=== PATIENT | female | born 1950 | race Caucasian/White ===

== ENCOUNTER → 2017-06-30 | Outpatient (CLI) | payer BC, OTHER ==
[~2017-06-30] MED LIST: NS 1000 ML 1,000 ML ONE
[2017-06-30 08:42] LABS: CREATININE 0.89 mg/dL (0.55-1.02)
--- NOTE | 2017-06-30 15:01 | CT ---
CT CHEST WITH IV CONTRAST HISTORY: Shortness of breath. History of PE. Comparison: None Technique: Non gated axial images of the chest were obtained with intravenous contrast according [facility] protocol. Dose reduction techniques including Automated Exposure Control (AEC) and ad justment of mA and kV were utlized. Findings: Although not optimized to detect pulmonary embolism, no evidence of a pulmonary embolism to the level of the segmental pulmonary arteries. The heart is normal in size. No pericardial effusion. Three-vessel coronary artery calcification. No suspicious mediastinal or axillary lymph nodes. No focal consolidations, pleural effusions or pneumothorax. Airways are patent. No suspicious pulmona ry nodules or masses. Limited images of the upper abdomen are unremarkable. No aggressive osseous lesions. IMPRESSION: 1. No source of patient's shortness of breath is identified on this examination. Reported By:
== END ==
LOC: RAD 08:06 → EDSEX 08:06
PROVIDERS: ATTEND Internal Medicine
DX: R60.1 Generalized edema (principal); Z86.711 Personal history of pulmonary embolism; R06.02 Shortness of breath
CPT/HCPCS: 36415; 71260; 82565; 84520; A4222

== ENCOUNTER 2018-11-12 02:32 | Inpatient (IN) ==
[2018-11-12] MEDS ORDERED: TORADOL 60 MG VIAL IM ONE (03:52)
[2018-11-12] MEDS ORDERED: TORADOL 60 MG VIAL ONE (03:56)
--- NOTE | 2018-11-12 04:01 | DR.GENAD ---
HPI Time Seen Time Seen by Provider: 11/12/18 03:37 PCP Primary Care Physician: DEENA Complaint/Symptoms Chief Complaint Doctors Comments: Patient presents with complaint of headache, not relieved by Naprosyn 275mg tonight. She denies vomiting admits to diarrhea x4 today. She admits to a history of hyponatremia (idiopathic) Chief Complaint:: STATES "HANDS AND FEET ARE COLD" BLOOD PRESSURE ELEVATED AT HOME, LAST BLOOD PRESSURE CHECKED 184/72. STATES SHE TOOK NIGHT TIME BLOOD PRESSURE MEDS AND REGULAR MEDS AND ALSO HAS A BAD HEADACHE. Source History Provided: Patient Mode of Arrival Mode of Arrival: Ambulatory Timing Onset of Chief Complaint: 11/11/18 PMH PMH Past Medical History: Yes Past Medical History: Hypertension Past Medical History Comment: "LOW SODIUM" Past Surgical History: Yes Surgical History: Hysterectomy, Ortho Surgery and Tonsillectomy Past Surgical History Comment: RIGHT KNEE REPLACEMENT Family History History of Family Medical Conditions: Yes Family Medical History: [place] Social History Does patient currently use any type of tobacco product: No Have you used tobacco products in the last 12 months: No Type of Tobacco Use: None Does any household member use tobacco: No Alcohol Use: None Do you use any recreational Drugs:: No Lives With: Spouse Lives Where: Home infectious screening In the last 2 months have you had wt loss of >10#?: NO Have you had fever, night sweats or hemotysis?: No Have you traveled outside the country in the last 6 months?: No Isolation: Standard ROS Review of Systems Constitutional: No Symptoms Reported; negative Weakness Eyes: No Symptoms Reported ENTM: No Symptoms Reported Respiratoy: No Symptoms Reported Gastrointestinal/Abdominal: See HPI and Diarrhea Genitourinary: No Symptoms Reported Neurological: Headache Musculoskeletal: No Symptoms Reported Integumentary: No Symptoms Reported Hematologic/Lymphatic: No Symptoms Reported Endocrine: No Symptoms Reported Psychiatric: No Symptoms Reported and Suicidal All Other Systems: Reviewed and Negative PE Vital Signs Vitals: Temperature 98.4 F Pulse Rate [Left] 64 Pulse Rate 68 Respiratory Rate 18 Blood Pressure [Left Arm] 138/68 Blood Pressure 174/78 O2 Sat by Pulse Oximetry 96 General Limitations: No Limitations General Appearance: Alert, In No Apparent Distress and Anxious Head Head Exam: Normal Inspection, Atraumatic and Normocephalic Eyes Eye exam: Normal Appearance, PERRL and EOMI ENT ENT Exam: Normal Exam, Normal Oropharynx, Mucous Membranes Moist, Mucous Membranes Dry and TM's Normal Bilaterally External Ear Exam: Normal External Inspection and Auricular Hematoma TM/Canal Exam: Bilateral: Normal Nose Exam: Normal Nose Exam and Sinus Tenderness Mouth Exam: Normal Inspection Throat Exam: Normal Inspection and Tonsillar Erythema Neck Neck Exam: Normal Inspection and Full ROM Chest Chest Inspection: Normal Inspection and Symmetric Chest Wall Rise Respiratory Respiratory Exam: Bilateral: Clear to Auscultation Cardiovascular Cardiovascular Exam: Regular Rate and Normal Rhythm Abdominal Exam Abdominal Exam: Normal Inspection, Normal Bowel Sounds, Soft and Hyperactive Bowel Sounds Abdominal Tenderness: negative RUQ, RLQ and LUQ Extremities Extremities Exam: Normal Inspection and Full ROM Back Back Exam: Normal Inspection and Full ROM Neurologic Neurological Exam: Alert, Oriented X3, CN II-XII Intact and Normal Gait Psychiatric Psychiatric Exam: Normal Affect, Normal Mood and Anxious Skin Skin Exam: Warm, Dry and Intact MDM Differential Diagnosis Differential Diagnosis: anxiety, hyponatremia,diabetes COURSE Reevaluation 1st: Improved Consultation Called: 06:05 Consultation Comments: Dr. Boyce contacted advised admission for hyponatremia ROR Labs Reviewed Laboratory Results Reviewed?: Yes Result Diagrams: 11/13/18 04:32 11/13/18 04:32 Laboratory: WBC 7.2 X10^3/uL (3.6-10.0) 11/13/18 04:32 RBC 4.53 X10^6/uL (3.5-5.4) 11/13/18 04:32 Hgb 13.2 g/dL (12.0-16.0) 11/13/18 04:32 Hct 38.9 % (36.0-47.0) 11/13/18 04:32 MCV 85.8 fL (80.0-100.0) 11/13/18 04:32 MCH 29.2 pg (27.0-34.0) 11/13/18 04:32 MCHC 34.1 g/dL (33.0-35.0) 11/13/18 04:32 RDW 13.9 % (11.6-16.5) 11/13/18 04:32 Plt Count 217 X10^3/uL (150.0-450.0) 11/13/18 04:32 MPV 8.2 fL (7.4-11.0) 11/13/18 04:32 Neut % (Auto) 64.5 % (42.0-75.0) 11/13/18 04:32 Lymph % (Auto) 24.1 % (21.0-51.0) 11/13/18 04:32 [place] % (Auto) 8.4 % (0.0-13.0) 11/13/18 04:32 Eos % (Auto) 2.6 % (0.9-2.9) 11/13/18 04:32 Baso % (Auto) 0.4 % (0.2-1.0) 11/13/18 04:32 Neut # (Auto) 4.6 x10^3/uL (2.2-4.8) 11/13/18 04:32 Lymph # (Auto) 1.7 X10^3/uL (1.3-2.9) 11/13/18 04:32 [place] # (Auto) 0.6 x10^3/uL (0.3-0.8) 11/13/18 04:32 Eos # (Auto) 0.2 x10^3/uL (0.0-0.2) 11/13/18 04:32 Baso # (Auto) 0.0 X10^3/uL (0.0-0.1) 11/13/18 04:32 Absolute Nucleated RBC 0.0 /100WBC 11/13/18 04:32 Sodium 131 mmol/L (136-145) L 11/13/18 04:32 Corrected Sodium TNP 11/13/18 04:32 Potassium 3.9 mmol/L (3.5-5.1) 11/13/18 04:32 Chloride 96 mmol/L (98-107) L 11/13/18 04:32 Carbon Dioxide 29.4 mmol/L (21-32) 11/13/18 04:32 BUN 10 mg/dL (7-18) 11/13/18 04:32 Creatinine 0.67 mg/dL (0.55-1.02) 11/13/18 04:32 Est GFR (MDRD) Af Amer > 60 (>60) 11/13/18 04:32 Est GFR (MDRD) Non-Af > 60 (>60) 11/13/18 04:32 Glucose 95 mg/dL (65-99) 11/13/18 04:32 Calcium 8.7 mg/dL (8.5-10.1) 11/13/18 04:32 Corrected Calcium 9.5 mg/dL (8.5-10.1) 11/13/18 04:32 Total Bilirubin 0.40 mg/dL (0.2-1.0) 11/13/18 04:32 AST 16 Units/L (15-37) 11/13/18 04:32 ALT 27 Units/L (12-78) 11/13/18 04:32 Alkaline Phosphatase 88 Units/L (46-116) 11/13/18 04:32 Total Protein 6.1 g/dL (6.4-8.2) L 11/13/18 04:32 Albumin 3.0 g/dL (3.4-5.0) L 11/13/18 04:32 Globulin 3.1 g/dL (2.5-4.5) 11/13/18 04:32 Albumin/Globulin Ratio 1.0 Ratio (1.1-2.1) L 11/13/18 04:32 Specimen Type Clean catch urine 11/12/18 12:40 Urine Color Yellow (YELLOW) 11/12/18 12:40 Urine Appearance Clear (CLEAR) 11/12/18 12:40 Urine pH 7.0 (5.0 - 8.0) 11/12/18 12:40 Ur Specific [place] 1.005 (1.000-1.030) 11/12/18 12:40 Urine Protein Negative (NEGATIVE) 11/12/18 12:40 Urine Glucose (UA) Negative (NEGATIVE) 11/12/18 12:40 Urine Ketones Negative (NEGATIVE) 11/12/18 12:40 Urine Occult Blood Negative (NEGATIVE) 11/12/18 12:40 Urine Nitrite Negative (NEGATIVE) 11/12/18 12:40 Urine Bilirubin Negative (NEGATIVE) 11/12/18 12:40 Urine Urobilinogen Normal (NORMAL) 11/12/18 12:40 Ur Leukocyte Esterase Negative (NEGATIVE) 11/12/18 12:40 Diagnosis Discharge Problem: Acute hyponatremia, Acute diarrhea Instructions Instructions: Hyponatremia, Cvvp-[id number] Food Choices to Help Relieve Diarrhea, Adult Hypertension, [id number] Managing Your Hypertension Diarrhea, Adult, Ucey-hv-[id number] Forms: Patient Portal ADDITIONAL NOTES Additional Notes Additional Notes: Patient admitted for further evaluation
[2018-11-12 04:09] LABS: BASOPHILS # (AUTO) 0.1 X10^3/uL (0.0-0.1); BASOPHILS % (AUTO) 0.5 % (0.2-1.0); EOSINOPHILS # (AUTO) 0.1 x10^3/uL (0.0-0.2); EOSINOPHILS % (AUTO) 1.1 % (0.9-2.9); HEMATOCRIT 41.1 % (36.0-47.0); HEMOGLOBIN 14.1 g/dL (12.0-16.0); LYMPHOCYTES # (AUTO) 1.9 X10^3/uL (1.3-2.9); MEAN CORPUSCULAR HEMOGLOBIN 29.2 pg (27.0-34.0); MEAN CORPUSCULAR HGB CONC 34.3 g/dL (33.0-35.0); MEAN CORPUSCULAR VOLUME 85.3 fL (80.0-100.0); MEAN PLATELET VOLUME 7.7 fL (7.4-11.0); MONOCYTES # (AUTO) 0.7 x10^3/uL (0.3-0.8); MONOCYTES % (AUTO) 6.5 % (0.0-13.0); NEUTROPHILS # (AUTO) 7.8 x10^3/uL (2.2-4.8); NEUTROPHILS % (AUTO) 73.9 % (42.0-75.0); PLATELET COUNT 242 X10^3/uL (150.0-450.0); RED BLOOD COUNT 4.82 X10^6/uL (3.5-5.4); RED CELL DISTRIBUTION WIDTH 13.9 % (11.6-16.5); WHITE BLOOD COUNT 10.6 X10^3/uL (3.6-10.0)
[2018-11-12 04:17] LABS: BLOOD UREA NITROGEN 12 mg/dL (7-18); CALCIUM 8.4 mg/dL (8.5-10.1); CARBON DIOXIDE 29.4 mmol/L (21-32); CHLORIDE 88 mmol/L (98-107); CREATININE 0.75 mg/dL (0.55-1.02); eGFR NON BLACK RACES > 60 (>60)
[2018-11-12 04:21] LABS: ALANINE AMINOTRANSFERASE 29 Units/L (12-78); ALBUMIN 3.6 g/dL (3.4-5.0); ALKALINE PHOSPHATASE 108 Units/L (46-116); ASPARTATE AMINO TRANSFERASE 19 Units/L (15-37); TOTAL PROTEIN 6.8 g/dL (6.4-8.2)
[2018-11-12 04:27] LABS: SODIUM 124 mmol/L (136-145)
[2018-11-12] MEDS ORDERED: NS 1000 ML 1,000 ML IV SCH ×2 (05:08→07:00)
[2018-11-12] MEDS ORDERED: ZOFRAN INJ 4 MG VIAL IVP PRN (06:36)
[2018-11-12 07:34] LABS: BLOOD UREA NITROGEN 13 mg/dL (7-18); CALCIUM 8.2 mg/dL (8.5-10.1); CARBON DIOXIDE 29.1 mmol/L (21-32); CHLORIDE 88 mmol/L (98-107); CREATININE 0.76 mg/dL (0.55-1.02); eGFR NON BLACK RACES > 60 (>60)
[2018-11-12 07:38] LABS: SODIUM 123 mmol/L (136-145)
[2018-11-12 08:29] VITALS: BMI 50.2
[2018-11-12] MEDS: MAXZIDE 37.5/25 MG PO SCH (08:53)
[2018-11-12] MEDS: VITAMIN D3 PO SCH (08:53)
[2018-11-12] MEDS: COZAAR PO SCH (08:53)
[2018-11-12] MEDS: OSCAL+D or CALTRATE+D PO SCH ×2 (08:54→20:41)
[2018-11-12] MEDS: FERROUS GLUCONATE PO SCH (08:54)
[2018-11-12] MEDS: ASPIRIN EC 81 MG PO SCH (08:54)
[2018-11-12] MEDS ORDERED: SODIUM CHL HYPERTONIC 3% ONE (08:59)
[2018-11-12] MEDS ORDERED: VITAMIN E PO SCH (09:00)
[2018-11-12] MEDS ORDERED: ACETATE PO SCH (09:00)
[2018-11-12] MEDS ORDERED: NS 1000 ML 1,000 ML IV ONE (10:27)
[2018-11-12 13:32] LABS: BILIRUBIN,URINE NEGATIVE (NEGATIVE); BLOOD/HEMOGLOBIN,URINE NEGATIVE (NEGATIVE); GLUCOSE, URINE NEGATIVE (NEGATIVE); KETONES,URINE NEGATIVE (NEGATIVE); LEUKOCYTE ESTERASE ,URINE NEGATIVE (NEGATIVE); NITRITES,URINE NEGATIVE (NEGATIVE); PROTEIN,URINE NEGATIVE (NEGATIVE); UROBILINOGEN,URINE NORMAL (NORMAL)
[2018-11-12 13:33] LABS: APPEARANCE,URINE CLEAR (CLEAR); COLOR,URINE YELLOW (YELLOW)
[2018-11-12] MEDS: NS 1000 ML 1,000 ML IV SCH (17:24)
[2018-11-12 17:53] LABS: BLOOD UREA NITROGEN 13 mg/dL (7-18); CALCIUM 8.4 mg/dL (8.5-10.1); CHLORIDE 89 mmol/L (98-107); eGFR NON BLACK RACES > 60 (>60)
[2018-11-12 17:56] LABS: SODIUM 123 mmol/L (136-145)
[2018-11-12] MEDS ORDERED: ZEBETA TAB 5 MG PO SCH (21:00)
[2018-11-12] MEDS ORDERED: LIPITOR TAB 10 MG PO SCH (21:00)
[2018-11-13 05:23] LABS: BASOPHILS % (AUTO) 0.4 % (0.2-1.0); EOSINOPHILS # (AUTO) 0.2 x10^3/uL (0.0-0.2); EOSINOPHILS % (AUTO) 2.6 % (0.9-2.9); HEMATOCRIT 38.9 % (36.0-47.0); HEMOGLOBIN 13.2 g/dL (12.0-16.0); LYMPHOCYTES # (AUTO) 1.7 X10^3/uL (1.3-2.9); LYMPHOCYTES % (AUTO) 24.1 % (21.0-51.0); MEAN CORPUSCULAR HEMOGLOBIN 29.2 pg (27.0-34.0); MEAN CORPUSCULAR HGB CONC 34.1 g/dL (33.0-35.0); MEAN CORPUSCULAR VOLUME 85.8 fL (80.0-100.0); MEAN PLATELET VOLUME 8.2 fL (7.4-11.0); MONOCYTES # (AUTO) 0.6 x10^3/uL (0.3-0.8); MONOCYTES % (AUTO) 8.4 % (0.0-13.0); NEUTROPHILS # (AUTO) 4.6 x10^3/uL (2.2-4.8); NEUTROPHILS % (AUTO) 64.5 % (42.0-75.0); PLATELET COUNT 217 X10^3/uL (150.0-450.0); RED BLOOD COUNT 4.53 X10^6/uL (3.5-5.4); RED CELL DISTRIBUTION WIDTH 13.9 % (11.6-16.5); WHITE BLOOD COUNT 7.2 X10^3/uL (3.6-10.0)
[2018-11-13 05:43] LABS: ALANINE AMINOTRANSFERASE 27 Units/L (12-78); ALKALINE PHOSPHATASE 88 Units/L (46-116); ASPARTATE AMINO TRANSFERASE 16 Units/L (15-37); BLOOD UREA NITROGEN 10 mg/dL (7-18); CALCIUM 8.7 mg/dL (8.5-10.1); CARBON DIOXIDE 29.4 mmol/L (21-32); CHLORIDE 96 mmol/L (98-107); COR CA(FOR HYPOALB) 9.5 mg/dL (8.5-10.1); CREATININE 0.67 mg/dL (0.55-1.02); SODIUM 131 mmol/L (136-145); TOTAL PROTEIN 6.1 g/dL (6.4-8.2); eGFR NON BLACK RACES > 60 (>60)
[2018-11-13] MEDS: SYNTHROID 150 mcg TAB PO SCH ×2 (06:04→16:48)
[2018-11-13] MEDS: NS 1000 ML 1,000 ML IV SCH ×2 (08:36→16:47)
[2018-11-13] MEDS: COZAAR PO SCH (08:37)
[2018-11-13] MEDS: OSCAL+D or CALTRATE+D PO SCH (08:37)
[2018-11-13] MEDS: VITAMIN D3 PO SCH (08:37)
[2018-11-13] MEDS: MAXZIDE 37.5/25 MG PO SCH (08:37)
[2018-11-13] MEDS: ASPIRIN EC 81 MG PO SCH (08:37)
[2018-11-13] MEDS: FERROUS GLUCONATE PO SCH (08:37)
[2018-11-13 16:37] VITALS: BP 138/68
== END 2018-11-13 17:50 | disposition home or self-care (01) | DRG 641 ==
LOC: MED/SURG 03:02 → ER 03:02 → OBSVTOIN 06:26 → MED/SURG 07:25
PROVIDERS: ADMIT Internal Medicine; ATTEND Internal Medicine
DX: E78.2 Mixed hyperlipidemia; E86.0 Dehydration; E87.1 Hypo-osmolality and hyponatremia; R19.7 Diarrhea, unspecified; E03.8 Other specified hypothyroidism; R51 Headache; I10 Essential (primary) hypertension; R53.1 Weakness
CPT/HCPCS: 36415; 80048; 80053; 81003; 85025; 94760; 96365; 96367; 96372; 99284; A4216; A4222; J1885; J7030; J7131

== ENCOUNTER 2021-11-18 11:08 | Observation (INO) ==
[2021-11-18] MEDS ORDERED: ZOFRAN INJ 4 MG VIAL IVP ONE (11:16)
[2021-11-18] MEDS ORDERED: NS 1,000 ML IV 1,000 ML IV ONE (11:16)
[2021-11-18 11:37] LABS: BASOPHILS # (AUTO) 0.1 X10^3/uL (0.0-0.1); BASOPHILS % (AUTO) 0.5 % (0.2-1.0); HEMATOCRIT 41.1 % (36.0-47.0); HEMOGLOBIN 13.9 g/dL (12.0-16.0); LYMPHOCYTES # (AUTO) 1.1 X10^3/uL (1.3-2.9); LYMPHOCYTES % (AUTO) 10.6 % (21.0-51.0); MEAN CORPUSCULAR HEMOGLOBIN 28.5 pg (27.0-34.0); MEAN CORPUSCULAR HGB CONC 33.8 g/dL (33.0-35.0); MEAN CORPUSCULAR VOLUME 84.3 fL (80.0-100.0); MEAN PLATELET VOLUME 8.5 fL (7.4-11.0); MONOCYTES # (AUTO) 0.9 x10^3/uL (0.3-0.8); NEUTROPHILS # (AUTO) 8.8 x10^3/uL (2.2-4.8); NEUTROPHILS % (AUTO) 80.9 % (42.0-75.0); RED BLOOD COUNT 4.88 X10^6/uL (3.5-5.4); RED CELL DISTRIBUTION WIDTH 14.7 % (11.6-16.5); WHITE BLOOD COUNT 10.8 X10^3/uL (3.6-10.0)
[2021-11-18 11:47] LABS: ALANINE AMINOTRANSFERASE 24 Units/L (12-78); ALBUMIN 3.6 g/dL (3.4-5.0); ALKALINE PHOSPHATASE 118 Units/L (46-116); ASPARTATE AMINO TRANSFERASE 24 Units/L (15-37); BLOOD UREA NITROGEN 17 mg/dL (7-18); CALCIUM 9.5 mg/dL (8.5-10.1); CARBON DIOXIDE 30.1 mmol/L (21-32); CHLORIDE 91 mmol/L (98-107); CREATININE 1.43 mg/dL (0.55-1.02); LIPASE 41 Units/L (73-393); SODIUM 130 mmol/L (136-145); TOTAL PROTEIN 7.4 g/dL (6.4-8.2); eGFR NON BLACK RACES 39 (>60)
[2021-11-18] MEDS ORDERED: ZOFRAN INJ 4 MG VIAL ONE (11:56)
[2021-11-18] MEDS ORDERED: NS 1,000 ML IV 1,000 ML ONE (11:57)
--- NOTE | 2021-11-18 12:08 | ED.ABDFE ---
HPI Time Seen Time Seen by Provider: 11/18/21 11:16 PCP Primary Care Physician: Dr Santos Complaint Doctors Chief Complaint Comments: 71 y/o female presents with abdominal pain and vomiting x 2 days. Developed diarrhea today. Having pain across the upper abdomen, sharp/cramping, does not radiate. Nothing makes it better, nothing makes it worse. Developed frequent vomiting, unable to keep anything down. Vomitus appeared fecal like. Associated with feeling hot, but no known fever. Today with diarrhea. Has a distant h/o vaginal hysterectomy, no other abdominal surgeries. Chief Complaint:: Pt reports upper left abd pain with radiation to the lower quadrant since Thursday, has been having intractible vomiting since that time as well. Today, pt started to have diarrhea. COVID-19 Coronavirus risk:travel/contact w/high risk person: No Has patient experienced Coronavirus symptoms: No Reviewed Nurses Notes Review: Yes Source History Provided: Patient Mode of arrival Mode of Arrival: Ambulatory Timing Onset of Chief Complaint: 11/18/21 PMH PMH Past Medical History: Yes Past Medical History: Arthritis, Diabetes, Dyslipidemia, Hypertension and Hypot hyroidism Past Surgical History: Yes Surgical History: Hysterectomy, Ortho Surgery and Tonsillectomy Past Surgical History Comment: bilateral cataract removal, R knee replacement Family History History of Family Medical Conditions: Yes Family Medical History: [place] and Hypertension Social History Alcohol Use: None Do you use any recreational Drugs:: No Lives Where: Home Travel Risk Coronavirus risk:travel/contact w/high risk person: No Has patient experienced Coronavirus symptoms: No Infectious screening In the last 2 months have you had wt loss of >10#?: NO Have you had fever, night sweats or hemotysis?: No Have you traveled outside the country in the last 6 months?: No Isolation: Standard ROS Review of Systems Constitutional: No Symptoms Reported Eyes: No Symptoms Reported ENTM: No Symptoms Reported Respiratoy: No Symptoms Reported Cardiovascular: No Symptoms Reported Gastrointestinal/Abdominal: Abdominal Pain, Diarrhea, Nausea and Vomiting Genitourinary: No Symptoms Reported Neurological: No Symptoms Reported Musculoskeletal: No Symptoms Reported Integumentary: No Symptoms Reported Hematologic/Lymphatic: No Symptoms Reported All Other Systems: Reviewed and Negative PE Vital Signs Vitals: Temperature 98.6 F Pulse Rate 79 Respiratory Rate 23 Blood Pressure [Left Arm] 155/74 Blood Pressure 119/56 O2 Sat by Pulse Oximetry 94 General Limitations: No Limitations General Appearance: Alert and In No Apparent Distress Head Head Exam: Normal Inspection Eyes Eye exam: PERRL and EOMI ENT ENT Exam: Normal Exam and Mucous Membranes Moist Neck Neck Exam: Normal Inspection Chest Chest Inspection: Normal Inspection Respiratory Respiratory Exam: Normal Lung Sounds Bilat; negative Accessory Muscle Use and Respiratory Distress Respiratory Exam: Bilateral: Clear to Auscultation Cardiovascular Cardiovascular Exam: Regular Rate, Normal Rhythm and Normal Heart Sounds Abdominal Exam Abdominal Exam: Soft, Tenderness (across upper abdomen, with increased tympany.) and Hypoactive Bowel Sounds Extremeties Extremities Exam: Normal Inspection and Full ROM; negative Tenderness Neurologic Neurological Exam: Alert, Oriented X3 and CN II-XII Intact; negative Motor Sensory Deficit Psychiatric Psychiatric Exam: Normal Affect Skin Skin Exam: Warm and Dry MDM Differential Diagnosis Differential Diagnosis- Considerations may include:: Bowel Obstruction, Cholcystitis, Cholelethiasis, Diverticular disease and Pancreatitis COURSE Treatment Treatment: 71 y/o female with 2 days of N/V and abdominal pain, now with diarrhea. Presentation concerning for SBO, w/u initiated. Pt given IV fluids, IV zofran. 1446 - x-rays with paucity of gas. Labs overall acceptable, has poor renal function, unable to give IV contrast for CT study. Plain CT of abd/pelvis shows changes c/w ileus or SBO. Recommend admission for further treatment. 1535 - admission to Dr Santos accepted thru his nurse. [facility] Labs Reviewed Laboratory Results Reviewed?: Yes Result Diagrams: 11/18/21 11:27 11/18/21 11:27 Laboratory: WBC 10.8 X10^3/uL (3.6-10.0) H 11/18/21 11: RBC 4.88 X10^6/uL (3.5-5.4) 11/18/21 11: Hgb 13.9 g/dL (12.0-16.0) 11/18/21 11: Hct 41.1 % (36.0-47.0) 11/18/21 11: MCV 84.3 fL (80.0-100.0) 11/18/21 11: MCH 28.5 pg (27.0-34.0) 11/18/21 11: MCHC 33.8 g/dL (33.0-35.0) 11/18/21 11: RDW 14.7 % (11.6-16.5) 11/18/21 11: Plt Count 269 X10^3/uL (150.0-450.0) 11/18/21 11: MPV 8.5 fL (7.4-11.0) 11/18/21 11: Neut % (Auto) 80.9 % (42.0-75.0) H 11/18/21 11: Lymph % (Auto) 10.6 % (21.0-51.0) L 11/18/21 11: [place] % (Auto) 8.0 % (0.0-13.0) 11/18/21 11: Eos % (Auto) 0.0 % (0.9-2.9) L 11/18/21 11: Baso % (Auto) 0.5 % (0.2-1.0) 11/18/21 11: Neut # (Auto) 8.8 x10^3/uL (2.2-4.8) H 11/18/21 11: Lymph # (Auto) 1.1 X10^3/uL (1.3-2.9) L 11/18/21 11: [place] # (Auto) 0.9 x10^3/uL (0.3-0.8) H 11/18/21 11: Eos # (Auto) 0.0 x10^3/uL (0.0-0.2) 11/18/21: Baso # (Auto) 0.1 X10^3/uL (0.0-0.1) 11/18/21 11: Absolute Nucleated RBC 0.0 /100WBC 11/18/21 11: Sodium 130 mmol/L (136-145) L 11/18/21 11: Corrected Sodium TNP 11/18/21 11: Potassium 4.4 mmol/L (3.5-5.1) 11/18/21 11: Chloride 91 mmol/L (98-107) L 11/18/21 11: Carbon Dioxide 30.1 mmol/L (21-32) 11/18/21 11: BUN 17 mg/dL (7-18) 11/18/21 11:27 Creatinine 1.43 mg/dL (0.55-1.02) H 11/18/21 11:27 Est GFR (MDRD) Af Amer 47 (>60) L 11/18/21 11: Est GFR (MDRD) Non-Af 39 (>60) L 11/18/21 11:27 Glucose 106 mg/dL (65-99) H 11/18/21 11:27 Calcium 9.5 mg/dL (8.5-10.1) 11/18/21 11: Corrected Calcium TNP 11/18/21 11: Total Bilirubin 0.80 mg/dL (0.2-1.0) 11/18/21 11: AST 24 Units/L (15-37) 11/18/21 11: ALT 24 Units/L (12-78) 11/18/21 11: Alkaline Phosphatase 118 Units/L (46-116) H 11/18/21 11:27 Total Protein 7.4 g/dL (6.4-8.2) 11/18/21 11: Albumin 3.6 g/dL (3.4-5.0) 11/18/21 11: Globulin 3.8 g/dL (2.5-4.5) 11/18/21 11:27 Albumin/Globulin Ratio 0.9 Ratio (1.1-2.1) L 11/18/21 11: Lipase 41 Units/L (73-393) L 11/18/21 11:27 Specimen Type Clean catch urine 11/18/21 14:18 Urine Color Dark yellow (YELLOW) 11/18/21 14:18 Urine Appearance Slightly hazy (CLEAR) 11/18/21 14:18 Urine pH 5.0 (5.0 - 8.0) 11/18/21 14:18 Ur Specific [place] 1.020 (1.000-1.030) 11/18/21 14:18 Urine Protein 2+ (NEGATIVE) 11/18/21 14:18 Urine Glucose (UA) Negative (NEGATIVE) 11/18/21 14:18 Urine Ketones 1+ (NEGATIVE) 11/18/21 14:18 Urine Blood 1+ (NEGATIVE) 11/18/21 14:18 Urine Nitrite Negative (NEGATIVE) 11/18/21 14:18 Urine Bilirubin 2+ (NEGATIVE) 11/18/21 14:18 Urine Urobilinogen 1+ (NORMAL) 11/18/21 14:18 Ur Leukocyte Esterase 3+ (NEGATIVE) 11/18/21 14:18 Urine RBC 3-5 /HPF (0-3) A 11/18/21 14:18 Urine WBC 5-10 /HPF (0-5) A 11/18/21 14:18 Ur Squamous Epith Cells Few /HPF (NEGATIVE) 11/18/21 14:18 Urine Bacteria Trace /HPF (NEGATIVE) 11/18/21 14:18 Urine Mucus Few /HPF (NEGATIVE) 11/18/21 14:18 Ur Culture Indicated? No/not indicated 11/18/21 14:18 Other Results Comments: Na low at 130. XRAY X-ray Results: Acute abd series with paucity of bowel gas. Opioid Opioid Risk Tool Age (Nathan box if 16-45): No History of Preadolescent Sexual Abuse: No Total: 0 Total Score Risk Category: Low Risk Copyright: Darrell FELDMAN predicting aberrant behaviors Diagnosis Discharge Problem: Vomiting and diarrhea
--- NOTE | 2021-11-18 12:35 | RAD ---
HISTORYN/V/DSTUDYACUTE ABDOMEN SERIESCOMPARISONNoneFINDINGSThe cardiomediastinal silhouette is unremarkable. The lungs are clear without evidence of airspace disease or effusion. No pneumothorax. The bony thorax appears intact.Evaluation of the abdomen demonstrates a nonobstructive bowel gas pattern. Gas-filled large bowel loops overlying the upper abdomen. No evidence of pneumoperitoneum. No pathologic soft tissue calcification. The bony structures of the abdomen are intact.IMPRESSION1. No acute cardiopulmonary process.2. No acute abdominal process.Electronically signed by: CHLOE AJ (Nov 18, 2021 12:33:25)
--- NOTE | 2021-11-18 14:11 | CT ---
HISTORYn/v/dSTUDYABDOMEN/PELVIS W/O CONCOMPARISONTECHNIQUEMultiple axial images of the abdomen and pelvis were obtained from the lung bases to the pubic symphysis without the administration of IV contrast. Dose reduction techniques including Automated Exposure Control (AEC) and adjustment of mA and kV were utilized.FINDINGSThe lung bases are clear. Heart size is normal. There is atherosclerosis in the LAD and RCA. The liver, spleen, adrenal glands, pancreas, gallbladder are normal. Kidneys are normal in size. There is no renal mass, stone, or hydronephrosis. There is some mild atherosclerosis in the abdominal aorta. There are fluid levels in the small bowel which are dilated at 3.9 centimeter diameter. The appendix is normal. There is induration in the fat of the mesentery suggesting edema. There are a few diverticula in the distal colon without convincing diverticulitis. Urinary bladder is collapsed. Uterus has been removed. There is no worrisome bone marrow lesion.IMPRESSIONAbnormal dilation of small bowel with air-fluid levels suggesting ileus or obstruction.Electronically signed by: Thong Jiménez (Nov 18, 2021 14:10:33)
[2021-11-18 14:37] LABS: BILIRUBIN,URINE 2+ (NEGATIVE); BLOOD/HEMOGLOBIN,URINE 1+ (NEGATIVE); GLUCOSE, URINE NEGATIVE (NEGATIVE); KETONES,URINE 1+ (NEGATIVE); LEUKOCYTE ESTERASE ,URINE 3+ (NEGATIVE); NITRITES,URINE NEGATIVE (NEGATIVE); PROTEIN,URINE 2+ (NEGATIVE); UROBILINOGEN,URINE 1+ (NORMAL)
[2021-11-18 14:50] LABS: APPEARANCE,URINE SLIGHTLY HAZY (CLEAR); COLOR,URINE DARK YELLOW (YELLOW)
[2021-11-18 14:51] LABS: BACTERIA,URINE TRACE /HPF (NEGATIVE); SQUAMOUS EPITHELIAL CELL,UR FEW /HPF (NEGATIVE)
[2021-11-18] MEDS ORDERED: ZOFRAN INJ 4 MG VIAL IVP PRN (20:36)
[2021-11-18] MEDS ORDERED: MORPHINE SULFATE INJ 2 MG INJ IVP PRN (20:37)
[2021-11-18] MEDS: D5 1/2 NS 1,000 ML 1,000 ML IV SCH (21:52)
[2021-11-19 05:05] LABS: BASOPHILS % (AUTO) 0.3 % (0.2-1.0); EOSINOPHILS # (AUTO) 0.1 x10^3/uL (0.0-0.2); EOSINOPHILS % (AUTO) 1.4 % (0.9-2.9); HEMATOCRIT 35.3 % (36.0-47.0); LYMPHOCYTES # (AUTO) 1.5 X10^3/uL (1.3-2.9); LYMPHOCYTES % (AUTO) 22.7 % (21.0-51.0); MEAN CORPUSCULAR HEMOGLOBIN 28.4 pg (27.0-34.0); MEAN CORPUSCULAR HGB CONC 33.7 g/dL (33.0-35.0); MEAN CORPUSCULAR VOLUME 84.4 fL (80.0-100.0); MEAN PLATELET VOLUME 8.7 fL (7.4-11.0); MONOCYTES # (AUTO) 0.8 x10^3/uL (0.3-0.8); NEUTROPHILS # (AUTO) 4.3 x10^3/uL (2.2-4.8); NEUTROPHILS % (AUTO) 63.6 % (42.0-75.0); RED BLOOD COUNT 4.19 X10^6/uL (3.5-5.4); RED CELL DISTRIBUTION WIDTH 14.7 % (11.6-16.5); WHITE BLOOD COUNT 6.8 X10^3/uL (3.6-10.0)
[2021-11-19 05:10] LABS: ALANINE AMINOTRANSFERASE 23 Units/L (12-78); ALBUMIN 2.9 g/dL (3.4-5.0); ALKALINE PHOSPHATASE 91 Units/L (46-116); ASPARTATE AMINO TRANSFERASE 24 Units/L (15-37); BLOOD UREA NITROGEN 16 mg/dL (7-18); CALCIUM 8.6 mg/dL (8.5-10.1); CARBON DIOXIDE 32.5 mmol/L (21-32); CHLORIDE 93 mmol/L (98-107); COR CA(FOR HYPOALB) 9.5 mg/dL (8.5-10.1); CREATININE 0.95 mg/dL (0.55-1.02); SODIUM 130 mmol/L (136-145); TOTAL PROTEIN 6.2 g/dL (6.4-8.2); eGFR NON BLACK RACES > 60 (>60)
[2021-11-19 05:11] LABS: HEMOGLOBIN 11.9 g/dL (12.0-16.0)
[2021-11-19] MEDS: D5 1/2 NS 1,000 ML 1,000 ML IV SCH ×3 (05:34→23:03)
--- NOTE | 2021-11-19 06:50 | RAD ---
HISTORYAbdominal pain, nausea, [id number]/11/2022 .br.br.br distension noted on the prior examination. Gas is present within the colon. No abnormal masses or abnormal calcifications are identified. No pneumoperitoneum is identified.IMPRESSIONPersistent but improved small bowel dilatation in the right upper quadrant when compared to the prior examination. Findings could be consistent with ileus or partial small bowel obstructionElectronically signed by: CHLOE AJ (Nov 19, 2021 06:49:13)
[2021-11-19 09:41] VITALS: BMI 54.0
[2021-11-19] MEDS: PROTONIX INJ 40 MG VIAL IVP SCH (11:45)
[2021-11-19] MEDS: LOVENOX INJ 40 MG SYR SC SCH (12:09)
[2021-11-19] MEDS: INVanz INJ 1 GRAM VIAL 1 G in NS 100 ML IV 100 ML IV SCH (12:16)
--- NOTE | 2021-11-19 22:32 | DR.H&P ---
H&P - History & Physical for Day of: H&P Date: 11/18/21 - Chief Complaint Chief Complaint: ABDOMINAL PAIN, N/V/D - History of Present Illness History of Present Illness: IS A 71 YEAR OLD PATIENT OF OURS. SHE PRESENTED TO THE ER WITH COMPLAINTS OF ABDOMINAL PAIN, NAUSEA, AND VOMITING X 3 DAYS. SHE ALSO BEGAN HAVING DIARRHEA EARLIER IN THE DAY. ABDOMEN IS DESCRIBED SHARP/CRAMPING, CONSTANT, AND IS LOCATED ACROSS THE UPPER ABDOMEN. PAIN RADIATES TO THE LOWER ABDOMEN AT TIMES. SHE RATES PAIN A 7/10. PAIN AND VOMITING ARE WORSE AFTER EATING. SHE HAS BEEN UNABLE TO HOLD ANY FOODS DOWN. SHE DENIES FEVER. PMH INCLUDES ARTHRITIS, DM II, DYSLIPIDEMIA, HTN, HYPOTHYROIDISM, HYSTERECTOMY, TONSILLECTOMY, AND RIGHT KNEE REPLACEMENT. ON ARRIVAL TO THE ER, VITALS WERE 98.6-79-23-94%-119/56. LABS WERE OBTAINED. WBC 10.8, HGB 13.9, HCT 41.1, SODIUM 130, POTASSIUM 4.4, CHLORIDE 91, BUN 17, CREATININE 1.43, GLUCOSE 106, CALCIUM 9.5, AST 24, ALT 24, ALK PHOS 118, TOTAL PROTEIN 7.4, ALBUMIN 3.6, LIPASE 41. A URINALYSIS WAS OBTAINED AND REVEALED: WBC 5-10, RBC 3-5, LEUKOCYTES 3+, BACTERIA TRACE, BILIRUBIN 2+, BLOOD 1+, PROTEIN 2+. COVID-19 NEGATIVE. AN ABDOMEN XRAY WAS OBTAINED AND REVEALED: NO ACUTE CARDIOPULMONARY PROCESS. NO ACUTE ABDOMINAL PROCESS. AN ABDOMEN/PELVIS CT WITHOUT CONTRAST WAS OBTAINED AND REVEALED: Abnormal dilation of small bowel with air-fluid levels suggesting ileus or obstruction. IN THE ER, SHE WAS GIVEN A NORMAL SALINE 1 LITER BOLUS, ZOFRAN 4MG IV X 1 DOSE. SHE WAS ADMITTED TO THE HOSPTIAL FOR FURTHER EVALUATION AND TREATMENT OF ILEUS VS SBO, INTRACTABLE N/V, UTI. SHE WAS STARTED ON D51/2NS AT 100 ML/HR, INVANZ 1G IV DAILY, LOVENOX 40MG SC DAILY, MORPHINE 2MG IV Q4H PRN, ZOFRAN 4MG IV Q6H PRN, PROTONIX 40MG IV DAILY. WE WILL CONSULT , GENERAL SURGEON. OTHERWISE, WE PLAN TO FOLLOW UP WITH AM LABS AND REPEAT KUB. TIME SPENT ON CLINICAL ASSESSMENT, REVIEWING LABS AND IMAGING, DECISION MAKING, AND DOCUMENTATION GREATER THAN 75 MINUTES. - Past Medical History Past Medical History: Hypertension, Dyslipidemia, Diabetes, Hypothyroidism, Arthritis - Past Surgical History Surgical History: Hysterectomy, Joint Replacement, Tonsillectomy, Other - Family History Family Medical History: Diabetes Mellitus, [place], Hypertension - Social History Does patient currently use any type of tobacco product: No Type of Tobacco Use: None Does any household member use tobacco: No Alcohol Use: Rarely Drug Use: None - Medications Home Medications: celecoxib [From Celebrex] Allergy (Verified 11/18/21 11:09) RASH CONTINUE taking the following medications docusate sodium [Colace] 200 mg PO DAILY 11/18/21 [History] furosemide 20 mg PO Q OTHER DAY 11/18/21 [History] vit C-vit [id number]-[id number] [Lutein Vison Formula] 1 cap PO BID 11/18/21 [History] - Review of Systems Constitutional: Weakness. denies: Fever Eyes: No Symptoms Reported ENT: No Symptoms Reported Respiratory: No Symptoms Reported Cardiovascular: No Symptoms Reported Gastrointestinal: See HPI, Nausea, Vomiting, Abdominal Pain, Diarrhea Genitourinary: No Symptoms Reported Musculoskeletal: No Symptoms Reported Skin: No Symptoms Reported Neurological: Weakness - Physical Exam Vital Signs: Temperature 97.9 F Pulse Rate [Left Radial] 75 Pulse Rate 82 Respiratory Rate 20 Blood Pressure [Left Arm] 142/63 Blood Pressure 119/56 O2 Sat by Pulse Oximetry 97 Oriented: Normal Eyes: Normal Ear: Normal Nose: Normal Throat: Normal Respiratory: Diminished Throughout Cardiovascular: Normal : Normal Auscultation: Bowel Sounds: Normal Palpation: Normal Tenderness: RUQ, LUQ, Epigastric Skin: Decreased Turgur Musculoskeletal: Normal Psychiatric: Normal Mood Description: Calm Affect: Normal Speech Pattern: Clear - Assessment/Plan (1) Small bowel obstruction Status: Acute Plan: ADMIT, NPO, D51/2NS AT 100 ML/HR, INVANZ 1G IV DAILY, LOVENOX 40MG SC DAILY, MORPHINE 2MG IV Q4H PRN, ZOFRAN 4MG IV Q6H PRN, PROTONIX 40MG IV DAILY. GENERAL SURGERY CONSULT (2) Acute hyponatremia Status: Acute (3) Acute diarrhea Status: Acute (4) Vomiting and diarrhea Status: Acute - Allergies Allergies/Adverse Reactions: Allergies Allergy/AdvReac Type Severity Reaction Status Date / Time celecoxib [From Celebrex] Allergy RASH Verified 11/18/21 11:09
[2021-11-20] MEDS: D5 1/2 NS 1,000 ML 1,000 ML IV SCH (05:01)
--- NOTE | 2021-11-20 06:14 | RAD ---
HISTORYSmall bowel [id number]/12/2022 .br.br.br.br The abdominal gas pattern is nonspecific. No definite dilated small bowel is identified. No abnormal masses or abnormal calcifications are identified. Regional skeleton appears intact.IMPRESSIONResolution limited by the patient's body habitusNo definite residual small bowel dilatation identified. It should be noted that fluid-filled small bowel loops may not be detectable on plain film.Electronically signed by: CHLOE AJ (Nov 20, 2021 06:13:38)
[2021-11-20 06:18] LABS: BASOPHILS % (AUTO) 0.4 % (0.2-1.0); EOSINOPHILS # (AUTO) 0.1 x10^3/uL (0.0-0.2); EOSINOPHILS % (AUTO) 2.2 % (0.9-2.9); HEMATOCRIT 34.6 % (36.0-47.0); HEMOGLOBIN 11.6 g/dL (12.0-16.0); LYMPHOCYTES # (AUTO) 1.1 X10^3/uL (1.3-2.9); LYMPHOCYTES % (AUTO) 19.4 % (21.0-51.0); MEAN CORPUSCULAR HEMOGLOBIN 28.4 pg (27.0-34.0); MEAN CORPUSCULAR HGB CONC 33.4 g/dL (33.0-35.0); MEAN CORPUSCULAR VOLUME 84.9 fL (80.0-100.0); MEAN PLATELET VOLUME 8.4 fL (7.4-11.0); MONOCYTES # (AUTO) 0.5 x10^3/uL (0.3-0.8); MONOCYTES % (AUTO) 9.6 % (0.0-13.0); NEUTROPHILS # (AUTO) 3.9 x10^3/uL (2.2-4.8); NEUTROPHILS % (AUTO) 68.4 % (42.0-75.0); RED BLOOD COUNT 4.07 X10^6/uL (3.5-5.4); RED CELL DISTRIBUTION WIDTH 14.7 % (11.6-16.5); WHITE BLOOD COUNT 5.6 X10^3/uL (3.6-10.0)
[2021-11-20 06:29] LABS: ALANINE AMINOTRANSFERASE 22 Units/L (12-78); ALBUMIN 2.9 g/dL (3.4-5.0); ALKALINE PHOSPHATASE 85 Units/L (46-116); ASPARTATE AMINO TRANSFERASE 18 Units/L (15-37); BLOOD UREA NITROGEN 6 mg/dL (7-18); CHLORIDE 95 mmol/L (98-107); COR CA(FOR HYPOALB) 8.9 mg/dL (8.5-10.1); CREATININE 0.74 mg/dL (0.55-1.02); SODIUM 129 mmol/L (136-145); TOTAL PROTEIN 5.9 g/dL (6.4-8.2); eGFR NON BLACK RACES > 60 (>60)
[2021-11-20] MEDS: D5 NS 1,000 ML IV 1,000 ML IV SCH ×3 (09:01→23:07)
[2021-11-20] MEDS: LOVENOX INJ 40 MG SYR SC SCH (09:02)
[2021-11-20] MEDS: PROTONIX INJ 40 MG VIAL IVP SCH (09:02)
[2021-11-20] MEDS: INVanz INJ 1 GRAM VIAL 1 G in NS 100 ML IV 100 ML IV SCH (09:03)
[2021-11-20] MEDS ORDERED: VITAMIN E 400 UNIT PO SCH (11:00)
[2021-11-20] MEDS ORDERED: LASIX PO SCH (11:00)
[2021-11-20] MEDS ORDERED: [UNRECOGNIZED DRUG - OTHER] PO SCH (11:00)
[2021-11-20] MEDS: SYNTHROID 150 mcg TAB PO SCH (12:19)
[2021-11-20] MEDS: SINGULAIR TAB 10 MG PO SCH (13:08)
[2021-11-20] MEDS: VITAMIN D3 125 mcg (5,000 UNITS) PO SCH (13:09)
[2021-11-20] MEDS: COLACE CAP 100 MG PO SCH (13:09)
[2021-11-20] MEDS: COZAAR PO SCH (13:09)
[2021-11-20] MEDS: OSCAL+D or CALTRATE+D PO SCH (20:32)
[2021-11-20] MEDS ORDERED: LIPITOR TAB 10 MG PO SCH (21:00)
[2021-11-20] MEDS ORDERED: COLACE CAP 100 MG PO SCH (21:00)
[2021-11-20] MEDS ORDERED: ZyrTEC TAB 10 MG PO SCH (21:00)
[2021-11-20] MEDS ORDERED: ZEBETA TAB 5 MG PO SCH (21:00)
[2021-11-21 06:17] LABS: BASOPHILS % (AUTO) 0.6 % (0.2-1.0); EOSINOPHILS # (AUTO) 0.1 x10^3/uL (0.0-0.2); EOSINOPHILS % (AUTO) 2.3 % (0.9-2.9); HEMATOCRIT 35.9 % (36.0-47.0); LYMPHOCYTES # (AUTO) 1.6 X10^3/uL (1.3-2.9); LYMPHOCYTES % (AUTO) 28.2 % (21.0-51.0); MEAN CORPUSCULAR HEMOGLOBIN 28.4 pg (27.0-34.0); MEAN CORPUSCULAR HGB CONC 33.5 g/dL (33.0-35.0); MEAN CORPUSCULAR VOLUME 84.9 fL (80.0-100.0); MEAN PLATELET VOLUME 8.2 fL (7.4-11.0); MONOCYTES # (AUTO) 0.5 x10^3/uL (0.3-0.8); MONOCYTES % (AUTO) 9.3 % (0.0-13.0); NEUTROPHILS # (AUTO) 3.3 x10^3/uL (2.2-4.8); NEUTROPHILS % (AUTO) 59.6 % (42.0-75.0); RED BLOOD COUNT 4.23 X10^6/uL (3.5-5.4); RED CELL DISTRIBUTION WIDTH 14.4 % (11.6-16.5); WHITE BLOOD COUNT 5.6 X10^3/uL (3.6-10.0)
[2021-11-21 06:29] LABS: ALANINE AMINOTRANSFERASE 23 Units/L (12-78); ALKALINE PHOSPHATASE 89 Units/L (46-116); ASPARTATE AMINO TRANSFERASE 19 Units/L (15-37); BLOOD UREA NITROGEN 2 mg/dL (7-18); CARBON DIOXIDE 32.4 mmol/L (21-32); CHLORIDE 99 mmol/L (98-107); COR CA(FOR HYPOALB) 8.8 mg/dL (8.5-10.1); CREATININE 0.71 mg/dL (0.55-1.02); SODIUM 135 mmol/L (136-145); TOTAL PROTEIN 6.1 g/dL (6.4-8.2); eGFR NON BLACK RACES > 60 (>60)
[2021-11-21] MEDS: D5 NS 1,000 ML IV 1,000 ML IV SCH (07:22)
[2021-11-21] MEDS ORDERED: POTASSIUM CHL 60 MEQ/NS 0.45% 500 ML IV PRN (08:03)
[2021-11-21] MEDS ORDERED: K-RIDER 10 MEQ/NS 100 ML 10 MEQ/100 ML BAG IV PRN (08:03)
[2021-11-21] MEDS ORDERED: MICRO K EXTEN CAP 10 MEQ PO PRN (08:03)
[2021-11-21] MEDS ORDERED: K-DUR TAB 20 MEQ PO PRN (08:03)
[2021-11-21] MEDS ORDERED: POTASSIUM CHL 40 MEQ/NS 0.45% 500 ML IV PRN (08:03)
[2021-11-21] MEDS ORDERED: POTASSIUM CHLORIDE LIQ 20 MEQ UDC PO PRN (08:03)
[2021-11-21] MEDS ORDERED: KLOR-CON PO PRN (08:03)
--- NOTE | 2021-11-21 08:20 | RAD ---
HISTORYSmall bowel [id number]/13/2022 .br.br.br.br habitus. The abdominal gas pattern is nonspecific. No definite dilated small bowel loops are identified. No abnormal masses or abnormal calcifications are identified. Regional skeleton appears intact. It should be noted that dilated completely fluid-filled loops of small bowel would not be visible on plain film.IMPRESSIONNo definite small bowel dilatation identified. It should be noted that fluid-filled small bowel loops may not be detectable on plain film. If persisting small-bowel obstruction is suspected follow-up CT would be of further diagnostic value.Electronically signed by: CHLOE AJ (Nov 21, 2021 08:19:28)
[2021-11-21] MEDS: COZAAR PO SCH (08:45)
[2021-11-21] MEDS: COLACE CAP 100 MG PO SCH (08:45)
[2021-11-21] MEDS: INVanz INJ 1 GRAM VIAL 1 G in NS 100 ML IV 100 ML IV SCH (08:46)
[2021-11-21] MEDS: OSCAL+D or CALTRATE+D PO SCH (08:47)
[2021-11-21] MEDS: SINGULAIR TAB 10 MG PO SCH (08:47)
[2021-11-21] MEDS: VITAMIN D3 125 mcg (5,000 UNITS) PO SCH (08:47)
[2021-11-21] MEDS: PROTONIX INJ 40 MG VIAL IVP SCH (08:48)
[2021-11-21] MEDS: SYNTHROID 150 mcg TAB PO SCH (08:48)
[2021-11-21] MEDS: LOVENOX INJ 40 MG SYR SC SCH (08:50)
[2021-11-21] MEDS ORDERED: HEMOCYTE-PLUS PO SCH (09:00)
[2021-11-21 10:30] VITALS: BP 182/75
--- NOTE | 2021-11-21 11:36 | PCM.PROG ---
Progress Note - Progress Note for Day of Date of Exam: 11/20/21 - Subjective Subjective: WAS ADMITTED FOR TREATMENT OF A SMALL BOWEL OBSTRUCTION, ACUTE HYPONATREMIA, UTI, AND N/V/D. TODAY, SHE IS ALERT AND ORIENTED, SITTING UP IN BED ON MORNING ROUNDS. SHE CONTINUES WITH NAUSEA AND DIFFUSE ABDOMINAL PAIN. SYMPTOMS HAVE SLIGHTLY IMPROVED TODAY. ON EXAMINATION, HEART IS REGULAR IN RATE AND RHYTHM. BILATERAL LUNGS CLEAR TO AUSCULTATION. ABDOMEN IS ROUND, SOFT, AND NOTED WITH DIFFUSE TENDERNESS. NORMAL BOWEL SOUNDS NOTED IN ALL QUADRANTS. NO UPPER OR LOWER EXTREMITY EDEMA NOTED. HER VITALS THIS MORNING ARE: 98.1-86-18-98%-116/53. LABS WERE OBTAINED. ABNORMAL LAB VALUES INCLUDE THE FOLLOWING: HGB 11.6, HCT 34.6, SODIUM 129, CHLORIDE 95, BUN 6, GLUCOSE 109, CALCIUM 8.0, TOTAL PROTEIN 5.9, ALBUMIN 2.9. A KUB WAS REPEATED THIS MORNING AND REVEALED: Resolution limited by the patient's body habitus. No definite residual small bowel dilatation identified. It should be noted that fluid-filled small bowel loops may not be detectable on plain film. SHE IS CURRENTLY RECEIVING D51/2NS AT 100 ML/HR, INVANZ 1G IV DAILY, LOVENOX 40MG SC DAILY, MORPHINE 2MG IV Q4H PRN, ZOFRAN 4MG IV Q6H PRN, PROTONIX 40MG IV DAILY. WE WILL CONTINUE WITH CURRENT PLAN OF CARE TODAY. OTHERWISE, WE PLAN TO FOLLOW UP WITH AM LABS AND KUB AND CONTINUE TO MONITOR. TIME SPENT ON CLINICAL ASSESSMENT, REVIEWING LABS AND IMAGING, DECISION MAKING, AND DOCUMENTATION GREATER THAN 45 MINUTES. - Past Medical Family Social History Past Med/Fam/Surg Hx: No changes since H&P Allergies: Allergies celecoxib [From Celebrex] Allergy (Verified 11/18/21 11:09) RASH swollen leg and rash - Review of Systems ROS: No change since H&P - Vital Signs and I&O's Vital Signs: Temperature 97.4 F Pulse Rate [Brachial] 67 Pulse Rate [Left Radial] 70 Pulse Rate 82 Respiratory Rate 18 Blood Pressure [Right Arm] 182/75 Blood Pressure [Left Arm] 139/61 Blood Pressure 119/56 O2 Sat by Pulse Oximetry 97 Intake and Output: Intake & Output 11/18/21 11/19/21 11/20/21 11/21/21 11:59 11:59 11:59 11:59 Intake Total 1761 4389 / 4389 6110 / 6110 Balance 1761 4389 / 4389 6110 / 6110 - Physical Exam Oriented: Normal Eyes: Normal Ear: Normal Nose: Normal Throat: Normal Respiratory: Diminished Cardiovascular: Normal : Normal Auscultation: Bowel Sounds: Normal Palpation: Normal Tenderness: RUQ, LUQ, Epigastric Skin: Decreased Turgur Musculoskeletal: Normal Psychiatric: Normal Mood Description: Calm Affect: Normal Speech Pattern: Clear, Appropriate - Laboratory and Diagnostics Result Diagrams: 11/21/21 05:56 11/21/21 05:56 Labs: Laboratory WBC 5.6 X10^3/uL (3.6-10.0) 11/21/21 05:56 RBC 4.23 X10^6/uL (3.5-5.4) 11/21/21 05:56 Hgb 12.0 g/dL (12.0-16.0) 11/21/21 05:56 Hct 35.9 % (36.0-47.0) L 11/21/21 05:56 MCV 84.9 fL (80.0-100.0) 11/21/21 05:56 MCH 28.4 pg (27.0-34.0) 11/21/21 05:56 MCHC 33.5 g/dL (33.0-35.0) 11/21/21 05:56 RDW 14.4 % (11.6-16.5) 11/21/21 05:56 Plt Count 219 X10^3/uL (150.0-450.0) 11/21/21 05:56 MPV 8.2 fL (7.4-11.0) 11/21/21 05:56 Neut % (Auto) 59.6 % (42.0-75.0) 11/21/21 05:56 Lymph % (Auto) 28.2 % (21.0-51.0) 11/21/21 05:56 [place] % (Auto) 9.3 % (0.0-13.0) 11/21/21 05:56 Eos % (Auto) 2.3 % (0.9-2.9) 11/21/21 05:56 Baso % (Auto) 0.6 % (0.2-1.0) 11/21/21 05:56 Neut # (Auto) 3.3 x10^3/uL (2.2-4.8) 11/21/21 05:56 Lymph # (Auto) 1.6 X10^3/uL (1.3-2.9) 11/21/21 05:56 [place] # (Auto) 0.5 x10^3/uL (0.3-0.8) 11/21/21 05:56 Eos # (Auto) 0.1 x10^3/uL (0.0-0.2) 11/21/21 05:56 Baso # (Auto) 0.0 X10^3/uL (0.0-0.1) 11/21/21 05:56 Absolute Nucleated RBC 0.1 /100WBC 11/21/21 05:56 Sodium 135 mmol/L (136-145) L 11/21/21 05:56 Corrected Sodium TNP 11/21/21 05:56 Potassium 3.6 mmol/L (3.5-5.1) 11/21/21 05:56 Chloride 99 mmol/L (98-107) 11/21/21 05:56 Carbon Dioxide 32.4 mmol/L (21-32) H 11/21/21 05:56 BUN 2 mg/dL (7-18) L 11/21/21 05:56 Creatinine 0.71 mg/dL (0.55-1.02) 11/21/21 05:56 Est GFR (MDRD) Af Amer > 60 (>60) 11/21/21 05:56 Est GFR (MDRD) Non-Af > 60 (>60) 11/21/21 05:56 Glucose 96 mg/dL (65-99) 11/21/21 05:56 Calcium 8.0 mg/dL (8.5-10.1) L 11/21/21 05:56 Corrected Calcium 8.8 mg/dL (8.5-10.1) 11/21/21 05:56 Magnesium 1.9 mg/dL (1.7-2.9) 11/21/21 05:56 Total Bilirubin 0.20 mg/dL (0.2-1.0) 11/21/21 05:56 AST 19 Units/L (15-37) 11/21/21 05:56 ALT 23 Units/L (12-78) 11/21/21 05:56 Alkaline Phosphatase 89 Units/L (46-116) 11/21/21 05:56 Total Protein 6.1 g/dL (6.4-8.2) L 11/21/21 05:56 Albumin 3.0 g/dL (3.4-5.0) L 11/21/21 05:56 Globulin 3.1 g/dL (2.5-4.5) 11/21/21 05:56 Albumin/Globulin Ratio 1.0 Ratio (1.1-2.1) L 11/21/21 05:56 Lipase 41 Units/L (73-393) L 11/18/21 11:27 Specimen Type Clean catch urine 11/18/21 14:18 Urine Color Dark yellow (YELLOW) 11/18/21 14:18 Urine Appearance Slightly hazy (CLEAR) 11/18/21 14:18 Urine pH 5.0 (5.0 - 8.0) 11/18/21 14:18 Ur Specific [place] 1.020 (1.000-1.030) 11/18/21 14:18 Urine Protein 2+ (NEGATIVE) 11/18/21 14:18 Urine Glucose (UA) Negative (NEGATIVE) 11/18/21 14:18 Urine Ketones 1+ (NEGATIVE) 11/18/21 14:18 Urine Blood 1+ (NEGATIVE) 11/18/21 14:18 Urine Nitrite Negative (NEGATIVE) 11/18/21 14:18 Urine Bilirubin 2+ (NEGATIVE) 11/18/21 14:18 Urine Urobilinogen 1+ (NORMAL) 11/18/21 14:18 Ur Leukocyte Esterase 3+ (NEGATIVE) 11/18/21 14:18 Urine RBC 3-5 /HPF (0-3) A 11/18/21 14:18 Urine WBC 5-10 /HPF (0-5) A 11/18/21 14:18 Ur Squamous Epith Cells Few /HPF (NEGATIVE) 11/18/21 14:18 Urine Bacteria Trace /HPF (NEGATIVE) 11/18/21 14:18 Urine Mucus Few /HPF (NEGATIVE) 11/18/21 14:18 Ur Culture Indicated? No/not indicated 11/18/21 14:18 SARS-CoV-2 (PCR) Negative (NEGATIVE) 11/18/21 14:37 - Plan (1) Small bowel obstruction Status: Acute Plan: D51/2NS AT 100 ML/HR, INVANZ 1G IV DAILY, LOVENOX 40MG SC DAILY, MORPHINE 2MG IV Q4H PRN, ZOFRAN 4MG IV Q6H PRN, PROTONIX 40MG IV DAILY. GENERAL SURGERY CONSULT (2) Acute hyponatremia Status: Acute (3) Acute diarrhea Status: Acute (4) Vomiting and diarrhea Status: Acute
== END 2021-11-21 11:00 | disposition home or self-care (01) ==
LOC: MED/SURG 11:08 → ER 11:08 → MED/SURG 19:25
PROVIDERS: ADMIT Internal Medicine; ATTEND Internal Medicine